=== PATIENT | female | born 1995 | race Caucasian/White ===

== ENCOUNTER 2020-03-31 09:27 | Inpatient (IN) | payer OTHER, BC ==
[2020-03-31] MEDS ORDERED: Nalbuphine 10 MG/1 ML Vial IVPUSH PRN (10:30)
[2020-03-31] MEDS ORDERED: Oxytocin/Lactated Ringers 10 UNIT/1,000 ML BAG IV SCH ×2 (10:30)
[2020-03-31] MEDS ORDERED: Sodium Chloride 0.9% 10 ML Syringe FLUSH PRN (10:30)
[2020-03-31] MEDS ORDERED: Lactated Ringers 1,000 ML IV SCH (10:30)
[2020-03-31] MEDS ORDERED: Lidocaine 1% 50 ML MDV INJECT PRN (10:30)
[2020-03-31] MEDS ORDERED: ePHEDrine 50 MG/ML SDV IVPUSH PRN (13:01)
[2020-03-31] MEDS ORDERED: diphenhydrAMINE 50 MG/ML SDV IVPUSH PRN (13:01)
[2020-03-31] MEDS ORDERED: Bupivacaine/fentaNYL/NS 100 ML Bag EPIDUR PRN (13:01)
[2020-03-31] MEDS ORDERED: fentaNYL 100 MCG/2 ML SDV EPIDUR PRN (13:01)
--- NOTE | 2020-03-31 13:24 | PCM.PREANE ---
Preanesthetic Assessment - Procedure Proposed Procedure: james - Anesthesia/Transfusion/Family Hx Anesthesia History: Prior Anesthesia Without Reaction Family History of Anesthesia Reaction: No Transfusion History: No Prior Transfusion(s) - Review of Systems General: No Symptoms Pulmonary: No Symptoms Cardiovascular: No Symptoms Gastrointestinal: No Symptoms Neurological: No Symptoms Other: Reports: None - Physical Assessment Vital Signs: Last Vital Signs Temp 98.4 F 03/31/20 10:22 Pulse 98 03/31/20 11:00 Resp 16 03/31/20 10:22 BP 124/81 03/31/20 11:00 Pulse Ox Height: 5 ft 6 in Weight: 74.389 kg ASA Class: 2 Mental Status: Alert & Oriented x3 Airway Class: Mallampati = 1 Dentition: Reports: Normal Dentition Thyro-Mental Finger Breadths: 3 Mouth Opening Finger Breadths: 3 ROM/Head Extension: Full Lungs: Clear to Auscultation, Normal Respiratory Effort Cardiovascular: Regular Rate, Regular Rhythm - Lab Values: Laboratory Last Values WBC 10.33 K/mm3 (3.98-10.04) H 03/31/20 10:56 RBC 3.99 M/mm3 (3.98-5.22) 03/31/20 10:56 Hgb 11.5 gm/dl (11.2-15.7) 03/31/20 10:56 Hct 36.0 % (34.1-44.9) 03/31/20 10:56 MCV 90.2 fl (79.4-94.8) 03/31/20 10:56 MCH 28.8 pg (25.6-32.2) 03/31/20 10:56 MCHC 31.9 g/dl (32.2-35.5) L 03/31/20 10:56 RDW Std Deviation 43.9 fL (36.4-46.3) 03/31/20 10:56 Plt Count 246 K/mm3 (182-369) 03/31/20 10:56 MPV 11.5 fl (9.4-12.3) 03/31/20 10:56 Neut % (Auto) 71.6 % (34.0-71.1) H 03/31/20 10:56 Lymph % (Auto) 19.7 % (19.3-51.7) 03/31/20 10:56 [place] % (Auto) 7.8 % (4.7-12.5) 03/31/20 10:56 Eos % (Auto) 0.3 (0.7-5.8) L 03/31/20 10:56 Baso % (Auto) 0.1 % (0.1-1.2) 03/31/20 10:56 Neut # (Auto) 7.39 K/mm3 (1.56-6.13) H 03/31/20 10:56 Lymph # (Auto) 2.04 K/mm3 (1.18-3.74) 03/31/20 10:56 [place] # (Auto) 0.81 K/mm3 (0.24-0.36) H 03/31/20 10:56 Eos # (Auto) 0.03 K/mm3 (0.04-0.36) L 03/31/20 10:56 Baso # (Auto) 0.01 K/mm3 (0.01-0.08) 03/31/20 10:56 Creatinine 0.7 mg/dL (0.55-1.02) 03/31/20 10:56 Est Cr Clr Drug Dosing 116.01 mL/min 03/31/20 10:56 Estimated GFR (MDRD) > 60 mL/min (>60) 03/31/20 10:56 AST 16 U/L (15-37) 03/31/20 10:56 ALT 15 U/L (14-59) 03/31/20 10:56 Ur Random Creatinine 29.2 mg/dL (30.0-125.0) L 03/31/20 11:45 U Random Total Protein < 6.0 mg/dL (0.0-11.8) 03/31/20 11:45 Protein/Creatinin Ratio TNP 03/31/20 11:45 Membrane Rupture Positive H 03/31/20 10:15 SARS-CoV-2 RNA (GIN) Negative (NEGATIVE) 03/31/20 10:50 - Allergies Allergies/Adverse Reactions: Allergies Allergy/AdvReac Type Severity Reaction Status Date / Time No Known Allergies Allergy Verified 03/31/20 09:43 - Blood Blood Available: No - Acknowledgements Anesthesia Type Planned: Epidural Pt an Appropriate Candidate for the Planned Anesthesia: Yes Alternatives and Risks of Anesthesia Discussed w Pt/Guardian: Yes Pt/Guardian Understands and Agrees with Anesthesia Plan: Yes PreAnesthesia Questionnaire Cardiovascular History: Reports: None Respiratory History: Reports: None Gastrointestinal History: Reports: GERD (last 6 weeks) : 1 (38 weeks) Para: 0 Oncologic (Cancer) History: Reports: None - History Comment History Comment: vit c and - SUBSTANCE USE Tobacco Use Status *Q: Never Tobacco User Tobacco Use Within Last Twelve Months: No Second Hand Smoke Exposure: No Days Per Week of Alcohol Use: 0 Recreational Drug Use History: No - CURRENT (IN HOUSE) MEDS Current Meds: Current Medications Diphenhydramine HCl (Benadryl) 25 mg IVPUSH Q6H PRN PRN Reason: pruritis Ephedrine Sulfate (Ephedrine Sulfate) 5 mg IVPUSH ASDIRECTED PRN PRN Reason: Hypotension Fentanyl (Sublimaze) 100 mcg EPIDUR Q3H PRN PRN Reason: Pain Fentanyl/Bupivacaine HCl (Fentanyl/Bupivacaine/Ns 2 Mcg-0.125% 100 Ml) 100 ml EPIDUR ASDIRECTED PRN PRN Reason: Pain Lactated Ringer's (Ringers, Lactated) 1,000 mls @ 100 mls/hr IV ASDIRECTED OBI Last Admin: 03/31/20 12:38 Dose: 100 mls/hr Documented by: Oxytocin/Lactated Ringer's (Pitocin In Lr 10 Units/1,000 Ml) 10 unit in 1,000 mls @ 12 mls/hr IV TITRATE OBI; Protocol Last Titration: 03/31/20 12:56 Dose: 4 munits/min, 24 mls/hr Documented by: Oxytocin/Lactated Ringer's (Pitocin In Lr 10 Units/1,000 Ml) 10 unit in 1,000 mls @ 500 mls/hr IV .CONTINUOUS OBI Lidocaine HCl (Xylocaine 1%) 50 ml INJECT ONETIME PRN PRN Reason: Breakthrough Pain Nalbuphine HCl (Nubain) 10 mg IVPUSH Q2H PRN PRN Reason: Pain Sodium Chloride (Saline Flush) 10 ml FLUSH ASDIRECTED PRN PRN Reason: Keep Vein Open
--- NOTE | 2020-03-31 16:04 | PCM.LDHP ---
L&D History of Present Illness - General Date of Service: 03/31/20 Admit Problem/Dx: Patient Status Order with Admit Dx/Problem 03/31/20 10:22 Patient Status [ADT] Routine 03/31/20 10:31 Patient Status [ADT] Routine Admission Diagnosis/Problem Admission Diagnosis/Problem Source of Information: Patient History Limitations: Reports: No Limitations - History of Present Illness Introduction:: Patient is a 24 y/o at 38 1/7 wks who presents with SROM. Occurred this AM about 0700. Small in amount overall. Minimal contractions - Related Data Allergies/Adverse Reactions: Allergies Allergy/AdvReac Type Severity Reaction Status Date / Time No Known Allergies Allergy Verified 03/31/20 09:43 Home Medications: Home Meds Pnv,Calcium 72/Iron/Folic Acid [ Vitamin with Low Iron] 1 each PO DAILY 03/31/20 [History] Past Medical History Gastrointestinal History: Reports: GERD (last 6 weeks) [employer] History: Reports: : 1 Para: 0 LMP (Approximate): - Past Surgical History HEENT Surgical History: Reports: Oral Surgery Other HEENT Surgeries/Procedures: teeth extraction Dermatological Surgical History: Reports: None - History Comment History Comment: vit c and Social & Family History - Family History Family Medical History: No Pertinent Family History - Tobacco Use Tobacco Use Status *Q: Never Tobacco User Second Hand Smoke Exposure: No - Caffeine Use Caffeine Use: Reports: None - Alcohol Use Alcohol Use History: No Days Per Week of Alcohol Use: 0 - Recreational Drug Use Recreational Drug Use: No H&P Review of Systems - Review of Systems: Review Of Systems: See Below General: Reports: No Symptoms Pulmonary: Reports: No Symptoms Cardiovascular: Reports: No Symptoms Gastrointestinal: Reports: No Symptoms Genitourinary: Reports: No Symptoms Musculoskeletal: Reports: No Symptoms Neurological: Reports: No Symptoms L&D Exam - Exam Exam: See Below - Vital Signs Vital Signs: Last Vital Signs Temp 36.9 C 03/31/20 10:22 Pulse 98 03/31/20 13:30 Resp 16 03/31/20 10:22 BP 131/86 03/31/20 13:30 Pulse Ox Weight: 74.389 kg - OB Specific Contraction Intensity: Irritability Movement: Active Heart Tones: Present Heart Tones per Min: 145 Heart Rate (FHR) Variability: Moderate (6-25 bmp) Presentation: Vertex - Armenta Score Armenta Score Cervix Position: Midposition Armenta Score Consistency: Soft Armenta Score Effacement: 51-70% Armenta Score Dilation: 1-2 cm Armenta Score Infant's Station: -2 Armenta Score Total: 7 - Exam General: Alert, Oriented, Cooperative Lungs: Clear to Auscultation, Normal Respiratory Effort Cardiovascular: Regular Rate, Regular Rhythm GI/Abdominal Exam: Normal Bowel Sounds, Soft Genitourinary: Normal external exam Extremities: Normal Inspection Skin: Warm, Dry, Intact - Patient Data Lab Results Last 24 hrs: Laboratory Results - last 24 hr 03/31/20 03/31/20 03/31/20 Range/Units 10:15 10:50 10:56 WBC 10.33 H (3.98-10.04) K/mm3 RBC 3.99 (3.98-5.22) M/mm3 Hgb 11.5 (11.2-15.7) gm/dl Hct 36.0 (34.1-44.9) % MCV 90.2 (79.4-94.8) fl MCH 28.8 (25.6-32.2) pg MCHC 31.9 L (32.2-35.5) g/dl RDW Std Deviation 43.9 (36.4-46.3) fL Plt Count 246 (182-369) K/mm3 MPV 11.5 (9.4-12.3) fl Neut % (Auto) 71.6 H (34.0-71.1) % Lymph % (Auto) 19.7 (19.3-51.7) % [place] % (Auto) 7.8 (4.7-12.5) % Eos % (Auto) 0.3 L (0.7-5.8) Baso % (Auto) 0.1 (0.1-1.2) % Neut # (Auto) 7.39 H (1.56-6.13) K/mm3 Lymph # (Auto) 2.04 (1.18-3.74) K/mm3 [place] # (Auto) 0.81 H (0.24-0.36) K/mm3 Eos # (Auto) 0.03 L (0.04-0.36) K/mm3 Baso # (Auto) 0.01 (0.01-0.08) K/mm3 Creatinine (0.55-1.02) mg/dL Est Cr Clr Drug Dosing mL/min Estimated GFR (MDRD) (>60) mL/min AST (15-37) U/L ALT (14-59) U/L Ur Random Creatinine (30.0-125.0) mg/dL U Random Total Protein (0.0-11.8) mg/dL Protein/Creatinin Ratio Membrane Rupture Positive H SARS-CoV-2 RNA (GIN) Negative (NEGATIVE) 03/31/20 03/31/20 Range/Units 10:56 11:45 WBC (3.98-10.04) K/mm3 RBC (3.98-5.22) M/mm3 Hgb (11.2-15.7) gm/dl Hct (34.1-44.9) % MCV (79.4-94.8) fl MCH (25.6-32.2) pg MCHC (32.2-35.5) g/dl RDW Std Deviation (36.4-46.3) fL Plt Count (182-369) K/mm3 MPV (9.4-12.3) fl Neut % (Auto) (34.0-71.1) % Lymph % (Auto) (19.3-51.7) % [place] % (Auto) (4.7-12.5) % Eos % (Auto) (0.7-5.8) Baso % (Auto) (0.1-1.2) % Neut # (Auto) (1.56-6.13) K/mm3 Lymph # (Auto) (1.18-3.74) K/mm3 [place] # (Auto) (0.24-0.36) K/mm3 Eos # (Auto) (0.04-0.36) K/mm3 Baso # (Auto) (0.01-0.08) K/mm3 Creatinine 0.7 (0.55-1.02) mg/dL Est Cr Clr Drug Dosing 116.01 mL/min Estimated GFR (MDRD) > 60 (>60) mL/min AST 16 (15-37) U/L ALT 15 (14-59) U/L Ur Random Creatinine 29.2 L (30.0-125.0) mg/dL U Random Total Protein < 6.0 (0.0-11.8) mg/dL Protein/Creatinin Ratio TNP Membrane Rupture SARS-CoV-2 RNA (GIN) (NEGATIVE) Result Diagrams: 03/31/20 10:56 03/31/20 10:56 - Problem List (1) SROM (spontaneous rupture of membranes) SNOMED Code(s): 084475883 ICD Code: KCT8347 - Status: Acute Current Visit: Yes (2) Gestational hypertension SNOMED Code(s): 982404045 ICD Code: O13.9 - GESTATIONAL HTN W/O SIGNIFICANT PROTEINURIA, UNSP TRIMESTER Status: Acute Current Visit: Yes Qualifiers: Trimester: third trimester Qualified Code(s): O13.3 - Gestational [-induced] hypertension without significant proteinuria, third trimester Problem List Initiated/Reviewed/Updated: Yes Orders Last 24hrs: Active Orders 24 hr Category Date Time Status Patient Status [ADT] Routine ADT 03/31/20 10:31 Active Activity as Tolerated [RC] PFP Care 03/31/20 10:30 Active Communication Order [RC] ASDIRECTED Care 03/31/20 10:30 Active Heart Tones [RC] ASDIRECTED Care 03/31/20 10:31 Active Non Stress Test [RC] PER UNIT ROUTINE Care 03/31/20 10:22 Active Notify Provider [RC] ASDIRECTED Care 03/31/20 13:01 Active Notify Provider [RC] PFP Care 03/31/20 10:30 Active Notify Provider [RC] PRN Care 03/31/20 10:30 Active Peripheral IV Care [RC] . DIRECTED Care 03/31/20 10:31 Active Urinary Catheter Assessment [RC] ASDIRECTED Care 03/31/20 10:30 Active Vital Signs [RC] PER UNIT ROUTINE Care 03/31/20 10:22 Active Regular Diet [DIET] Diet 03/31/20 Lunch Active RAPID PLASMA REAGIN,RPR [CHEM] Routine Lab 03/31/20 10:56 Received Bupivacaine/fentaNYL/NS [fentaNYL/Bupivacaine/NS 2 MCG- Med 03/31/20 13:01 Active 0.125% 100 ML] 100 ml EPIDUR ASDIRECTED PRN Lactated Ringers [Ringers, Lactated] 1,000 ml Med 03/31/20 10:30 Active IV ASDIRECTED Lidocaine 1% [Xylocaine 1%] Med 03/31/20 10:30 Active 50 ml INJECT ONETIME PRN Nalbuphine [Nubain] Med 03/31/20 10:30 Active 10 mg IVPUSH Q2H PRN Oxytocin/Lactated Ringers [Pitocin in LR 10 Units/1,000 Med 03/31/20 10:30 Active ML] 10 unit in 1,000 ml IV .CONTINUOUS Oxytocin/Lactated Ringers [Pitocin in LR 10 Units/1,000 Med 03/31/20 10:30 Active ML] 10 unit in 1,000 ml IV TITRATE Sodium Chloride 0.9% [Saline Flush] Med 03/31/20 10:30 Active 10 ml FLUSH ASDIRECTED PRN diphenhydrAMINE [Benadryl] Med 03/31/20 13:01 Active 25 mg IVPUSH Q6H PRN ePHEDrine [ePHEDrine sulfate] Med 03/31/20 13:01 Active 5 mg IVPUSH ASDIRECTED PRN fentaNYL [Sublimaze] Med 03/31/20 13:01 Active 100 mcg EPIDUR Q3H PRN Electronic Heart Tones Ext w TOCO [WOMSER] Oth 03/31/20 10:30 Ordered Routine Electronic Heart Tones Internal [WOMSER] Per Unit Oth 03/31/20 10:30 Ordered Routine Peripheral IV Insertion Adult [OM.PC] Routine Oth 03/31/20 10:30 Ordered Resuscitation Status Routine Resus Stat 03/31/20 10:22 Ordered Medication Orders Diphenhydramine HCl (Benadryl) 25 mg IVPUSH Q6H PRN PRN Reason: pruritis Ephedrine Sulfate (Ephedrine Sulfate) 5 mg IVPUSH ASDIRECTED PRN PRN Reason: Hypotension Fentanyl (Sublimaze) 100 mcg EPIDUR Q3H PRN PRN Reason: Pain Fentanyl/Bupivacaine HCl (Fentanyl/Bupivacaine/Ns 2 Mcg-0.125% 100 Ml) 100 ml EPIDUR ASDIRECTED PRN PRN Reason: Pain Lactated Ringer's (Ringers, Lactated) 1,000 mls @ 100 mls/hr IV ASDIRECTED OBI Last Admin: 03/31/20 12:38 Dose: 100 mls/hr Documented by: MAIDA Oxytocin/Lactated Ringer's (Pitocin In Lr 10 Units/1,000 Ml) 10 unit in 1,000 mls @ 12 mls/hr IV TITRATE OBI; Protocol Last Titration: 03/31/20 15:58 Dose: 8 munits/min, 48 mls/hr Documented by: Titration: 03/31/20 13:35 Dose: 6 munits/min, 36 mls/hr Documented by: Titration: 03/31/20 12:56 Dose: 4 munits/min, 24 mls/hr Documented by: Admin: 03/31/20 12:38 Dose: 2 munits/min, 12 mls/hr Documented by: MAIDA Oxytocin/Lactated Ringer's (Pitocin In Lr 10 Units/1,000 Ml) 10 unit in 1,000 mls @ 500 mls/hr IV .CONTINUOUS OBI Lidocaine HCl (Xylocaine 1%) 50 ml INJECT ONETIME PRN PRN Reason: Breakthrough Pain Nalbuphine HCl (Nubain) 10 mg IVPUSH Q2H PRN PRN Reason: Pain Sodium Chloride (Saline Flush) 10 ml FLUSH ASDIRECTED PRN PRN Reason: Keep Vein Open Assessment/Plan Comment:: * Labs done * AST, ALT, Creatinine for elevated BP done and WNL - gestational HTN * Pitocin for augmentation. Just ruptured a forebag * GBS negative * Pain management per patient preference
--- NOTE | 2020-03-31 21:28 | PCM.DEL ---
L & D Note - General Info Date of Service: 03/31/20 - Delivery Note Labor: Augmented by Oxytocin Delivery Outcome: Livebirth Delivery Method: Spontaneous Vaginal Delivery-Single Delivery Mode: Spontaneous Presentation: Left Occiput Anterior (DOLLY) Nuchal Cord: None Anesthesia Type: Epidural Amniotic Fluid Description: Clear Episiotomy Type: None Laceration: 2nd Degree Suture type: Vicryl (And also 3-0 Monocryl) Suture size: 2-0 Placenta: Intact, Spontaneous Cord: 3 Vessels Estimated Blood Loss: 100 : Bulb Syringe, Stimulated, Warmed, [place] Used, Warmer Used Delivery Comments (Free Text/Narrative):: Patient found to be complete and began pushing. With maternal pushing effort head delivered from an DOLLY presentation. No nuchal cord present. With gentle downward traction the shoulders and body delivered. placed on maternal abdomen. Cord clamped and cut. Cord blood obtained. Placenta allowed time to separate and expelled intact. Inspection of perineum showed a 2nd degree laceration with disruption of left labia. Labia laceration repaired first with running 3-0 Monocryl. Remainder of perineal laceration repaired with a 2-0 Vicryl in the typical fashion - General Info Date of Service: 03/31/20 - Patient Data Vitals - Most Recent: Last Vital Signs Temp 36.9 C 03/31/20 10:22 Pulse 98 03/31/20 13:30 Resp 16 03/31/20 10:22 BP 131/86 03/31/20 13:30 Pulse Ox Weight - Most Recent: 74.389 kg I&O - Last 24 Hours: Intake & Output 03/31/20 03/31/20 03/31/20 06:59 14:59 22:59 Intake Total 180 Balance 180 - Problem List & Annotations (1) SROM (spontaneous rupture of membranes) SNOMED Code(s): 078358865 Code(s): EEC8758 - Status: Acute Current Visit: Yes (2) Gestational hypertension SNOMED Code(s): 258130607 Code(s): O13.9 - GESTATIONAL HTN W/O SIGNIFICANT PROTEINURIA, UNSP TRIMESTER Status: Acute Current Visit: Yes Qualifiers: Trimester: third trimester Qualified Code(s): O13.3 - Gestational [-induced] hypertension without significant proteinuria, third trimester (3) Vaginal delivery SNOMED Code(s): 403164821 Code(s): O80 - ENCOUNTER FOR FULL-TERM UNCOMPLICATED DELIVERY Status: Acute Current Visit: Yes - Problem List Review Problem List Initiated/Reviewed/Updated: Yes - My Orders Last 24 Hours: My Active Orders 03/31/20 10:22 Non Stress Test [RC] PER UNIT ROUTINE Vital Signs [RC] PER UNIT ROUTINE Resuscitation Status Routine 03/31/20 10:30 Activity as Tolerated [RC] PFP Communication Order [RC] ASDIRECTED Notify Provider [RC] PFP Notify Provider [RC] PRN Urinary Catheter Assessment [RC] ASDIRECTED Lactated Ringers [Ringers, Lactated] 1,000 ml IV ASDIRECTED Lidocaine 1% [Xylocaine 1%] 50 ml INJECT ONETIME PRN Nalbuphine [Nubain] 10 mg IVPUSH Q2H PRN Oxytocin/Lactated Ringers [Pitocin in LR 10 Units/1,000 ML] 10 unit in 1,000 ml IV .CONTINUOUS Oxytocin/Lactated Ringers [Pitocin in LR 10 Units/1,000 ML] 10 unit in 1,000 ml IV TITRATE Sodium Chloride 0.9% [Saline Flush] 10 ml FLUSH ASDIRECTED PRN Electronic Heart Tones Ext w TOCO [WOMSER] Routine Electronic Heart Tones Internal [WOMSER] Per Unit Routine Peripheral IV Insertion Adult [OM.PC] Routine 03/31/20 10:31 Patient Status [ADT] Routine Heart Tones [RC] ASDIRECTED Peripheral IV Care [RC] . DIRECTED 03/31/20 Lunch Regular Diet [DIET] - Assessment Assessment:: PPD#0 - Plan Plan:: * Routine cares * Monitor BP's closely * Breast feeding * Discharge home in 2 days
[2020-03-31] MEDS ORDERED: Acetaminophen 325 MG Tab PO PRN (22:01)
[2020-03-31] MEDS ORDERED: Benzocaine/Menthol 20%-0.5% Spray 56 GM Canister TOP PRN (22:01)
[2020-03-31] MEDS ORDERED: Witch Hazel Medicated Pads 40/Jar TOP PRN (22:01)
[2020-03-31] MEDS ORDERED: Docusate Sodium 100 MG Cap PO PRN (22:01)
[2020-04-01] MEDS ORDERED: Bupivacaine 0.25% 10 ML SDV ONE
[2020-04-01] MEDS: Ibuprofen 600 MG Tab PO PRN ×2 (05:07→16:35)
--- NOTE | 2020-04-01 07:31 | PCM48HPAN ---
Post Anesthesia Note - EVALUATION WITHIN 48HRS OF ANESTHETIC Vital Signs in Normal Range: Yes Patient Participated in Evaluation: Yes Respiratory Function Stable: Yes Airway Patent: Yes Cardiovascular Function Stable: Yes Hydration Status Stable: Yes Pain Control Satisfactory: Yes Nausea and Vomiting Control Satisfactory: Yes Mental Status Recovered: Yes Vital Signs: Last Vital Signs Temp 37.0 C 04/01/20 05:04 Pulse 96 04/01/20 05:04 Resp 15 04/01/20 05:04 BP 138/85 04/01/20 05:04 Pulse Ox 95 04/01/20 05:04
--- NOTE | 2020-04-01 08:06 | PCM.PNPP ---
- General Info Date of Service: 04/01/20 Functional Status: Reports: Pain Controlled, Tolerating Diet, Ambulating, Urinating - Review of Systems General: Reports: No Symptoms Pulmonary: Reports: No Symptoms Cardiovascular: Reports: No Symptoms Gastrointestinal: Reports: No Symptoms Genitourinary: Reports: No Symptoms Musculoskeletal: Reports: No Symptoms Neurological: Reports: No Symptoms - Patient Data Vital Signs - Most Recent: Last Vital Signs Temp 37.0 C 04/01/20 05:04 Pulse 96 04/01/20 05:04 Resp 15 04/01/20 05:04 BP 138/85 04/01/20 05:04 Pulse Ox 95 04/01/20 05:04 Weight - Most Recent: 74.389 kg I&O - Last 24 Hours: Intake & Output 03/31/20 04/01/20 04/01/20 22:59 06:59 14:59 Intake Total 180 3000 Balance 180 3000 Lab Results - Last 24 Hours: Laboratory Results - last 24 hr 03/31/20 03/31/20 03/31/20 Range/Units 10:15 10:50 10:56 WBC 10.33 H (3.98-10.04) K/mm3 RBC 3.99 (3.98-5.22) M/mm3 Hgb 11.5 (11.2-15.7) gm/dl Hct 36.0 (34.1-44.9) % MCV 90.2 (79.4-94.8) fl MCH 28.8 (25.6-32.2) pg MCHC 31.9 L (32.2-35.5) g/dl RDW Std Deviation 43.9 (36.4-46.3) fL Plt Count 246 (182-369) K/mm3 MPV 11.5 (9.4-12.3) fl Neut % (Auto) 71.6 H (34.0-71.1) % Lymph % (Auto) 19.7 (19.3-51.7) % [place] % (Auto) 7.8 (4.7-12.5) % Eos % (Auto) 0.3 L (0.7-5.8) Baso % (Auto) 0.1 (0.1-1.2) % Neut # (Auto) 7.39 H (1.56-6.13) K/mm3 Lymph # (Auto) 2.04 (1.18-3.74) K/mm3 [place] # (Auto) 0.81 H (0.24-0.36) K/mm3 Eos # (Auto) 0.03 L (0.04-0.36) K/mm3 Baso # (Auto) 0.01 (0.01-0.08) K/mm3 Creatinine (0.55-1.02) mg/dL Est Cr Clr Drug Dosing mL/min Estimated GFR (MDRD) (>60) mL/min AST (15-37) U/L ALT (14-59) U/L Ur Random Creatinine (30.0-125.0) mg/dL U Random Total Protein (0.0-11.8) mg/dL Protein/Creatinin Ratio Membrane Rupture Positive H RPR (NONREACTIVE) SARS-CoV-2 RNA (GIN) Negative (NEGATIVE) 03/31/20 03/31/20 03/31/20 Range/Units 10:56 10:56 11:45 WBC (3.98-10.04) K/mm3 RBC (3.98-5.22) M/mm3 Hgb (11.2-15.7) gm/dl Hct (34.1-44.9) % MCV (79.4-94.8) fl MCH (25.6-32.2) pg MCHC (32.2-35.5) g/dl RDW Std Deviation (36.4-46.3) fL Plt Count (182-369) K/mm3 MPV (9.4-12.3) fl Neut % (Auto) (34.0-71.1) % Lymph % (Auto) (19.3-51.7) % [place] % (Auto) (4.7-12.5) % Eos % (Auto) (0.7-5.8) Baso % (Auto) (0.1-1.2) % Neut # (Auto) (1.56-6.13) K/mm3 Lymph # (Auto) (1.18-3.74) K/mm3 [place] # (Auto) (0.24-0.36) K/mm3 Eos # (Auto) (0.04-0.36) K/mm3 Baso # (Auto) (0.01-0.08) K/mm3 Creatinine 0.7 (0.55-1.02) mg/dL Est Cr Clr Drug Dosing 116.01 mL/min Estimated GFR (MDRD) > 60 (>60) mL/min AST 16 (15-37) U/L ALT 15 (14-59) U/L Ur Random Creatinine 29.2 L (30.0-125.0) mg/dL U Random Total Protein < 6.0 (0.0-11.8) mg/dL Protein/Creatinin Ratio TNP Membrane Rupture RPR Non-reactive (NONREACTIVE) SARS-CoV-2 RNA (GIN) (NEGATIVE) Med Orders - Current: Current Medications Acetaminophen (Tylenol) 650 mg PO Q4H PRN PRN Reason: mild pain or fever Last Admin: 03/31/20 22:27 Dose: 650 mg Documented by: Benzocaine/Menthol (Dermoplast Pain Relief [place]) 0 gm TOP ASDIRECTED PRN PRN Reason: Perineal Comfort Measure Last Admin: 03/31/20 22:27 Dose: 1 can Documented by: Docusate Sodium (Colace) 100 mg PO BID PRN PRN Reason: Constipation Ibuprofen (Motrin) 600 mg PO Q6H PRN PRN Reason: Mild pain or fever Last Admin: 04/01/20 05:07 Dose: 600 mg Documented by: Tamiko Hong (Rodney) 1 pad TOP ASDIRECTED PRN PRN Reason: Perineal Comfort Measure Last Admin: 03/31/20 22:26 Dose: 1 jar Documented by: Discontinued Medications Diphenhydramine HCl (Benadryl) 25 mg IVPUSH Q6H PRN PRN Reason: pruritis Ephedrine Sulfate (Ephedrine Sulfate) 5 mg IVPUSH ASDIRECTED PRN PRN Reason: Hypotension Fentanyl (Sublimaze) 100 mcg EPIDUR Q3H PRN PRN Reason: Pain Last Admin: 03/31/20 18:40 Dose: 100 mcg Documented by: Fentanyl/Bupivacaine HCl (Fentanyl/Bupivacaine/Ns 2 Mcg-0.125% 100 Ml) 100 ml EPIDUR ASDIRECTED PRN PRN Reason: Pain Last Admin: 03/31/20 18:39 Dose: 100 ml Documented by: Lactated Ringer's (Ringers, Lactated) 1,000 mls @ 100 mls/hr IV ASDIRECTED OBI Last Infusion: 03/31/20 18:41 Dose: 999 mls/hr Documented by: Oxytocin/Lactated Ringer's (Pitocin In Lr 10 Units/1,000 Ml) 10 unit in 1,000 mls @ 12 mls/hr IV TITRATE OBI; Protocol Last Titration: 03/31/20 18:40 Dose: 8 munits/min, 48 mls/hr Documented by: Oxytocin/Lactated Ringer's (Pitocin In Lr 10 Units/1,000 Ml) 10 unit in 1,000 mls @ 500 mls/hr IV .CONTINUOUS OBI Lidocaine HCl (Xylocaine 1%) 50 ml INJECT ONETIME PRN PRN Reason: Breakthrough Pain Nalbuphine HCl (Nubain) 10 mg IVPUSH Q2H PRN PRN Reason: Pain Sodium Chloride (Saline Flush) 10 ml FLUSH ASDIRECTED PRN PRN Reason: Keep Vein Open - Interaction Disposition, : in Room with Family Infant Interaction: Holding Infant Feeding: Attempted ; Nursed Fair/Poor Support Person: - Recovery Exam Fundal Tone: Firm Fundal Level: At Umbilicus Fundal Placement: Midline Lochia Amount: Scant, Small Lochia Color: Rubra/Red Episiotomy/Laceration: Approximated Bladder Status: Voiding Urinary Elimination: Voided - Exam General: Alert, Oriented, Cooperative GI/Abdominal Exam: Soft, Non-Tender Extremities: Normal Inspection Skin: Warm, Dry, Intact - Problem List & Annotations (1) SROM (spontaneous rupture of membranes) SNOMED Code(s): 043953620 Code(s): OTL3397 - Status: Acute Current Visit: Yes (2) Gestational hypertension SNOMED Code(s): 844644018 Code(s): O13.9 - GESTATIONAL HTN W/O SIGNIFICANT PROTEINURIA, UNSP TRIMESTER Status: Acute Current Visit: Yes Qualifiers: Trimester: third trimester Qualified Code(s): O13.3 - Gestational [-induced] hypertension without significant proteinuria, third trimester (3) Vaginal delivery SNOMED Code(s): 284080273 Code(s): O80 - ENCOUNTER FOR FULL-TERM UNCOMPLICATED DELIVERY Status: Acute Current Visit: Yes - Problem List Review Problem List Initiated/Reviewed/Updated: Yes - My Orders Last 24 Hours: My Active Orders 03/31/20 10:22 Resuscitation Status Routine 03/31/20 22:01 Acetaminophen [TylenoL] 650 mg PO Q4H PRN Benzocaine/Menthol [Dermoplast Pain Relief [place]] See Dose Instructions TOP ASDIRECTED PRN Docusate Sodium [Colace] 100 mg PO BID PRN Ibuprofen [Motrin] 600 mg PO Q6H PRN witch Ann [Tucks] 1 pad TOP ASDIRECTED PRN Heat Therapy [OM.PC] PRN 03/31/20 22:01 Activity as Tolerated [RC] PER UNIT ROUTINE Vital Signs [RC] ,15,, Assess Lochia [WOMSER] Per Unit Routine Assess Uterine Involution [WOMSER] Per Unit Routine Breast Pump [WOMSER] Per Unit Routine Ice Therapy [OM.PC] Per Unit Routine Perineal Care [OM.PC] Per Unit Routine Peripheral IV Discontinue [OM.PC] Routine Sitz Bath [OM.PC] Per Unit Routine 04/01/20 22:01 Heat Therapy [OM.PC] PRN - Assessment Assessment:: PPD#1 - Plan Plan:: * Routine cares * BP's normal to mild range. Continue to monitor * Breast feeding * Discharge home tomorrow
--- NOTE | 2020-04-02 07:02 | PCM.DCSUM1 ---
Discharge Summary - Discharge Data Discharge Date: 04/02/20 Discharge Disposition: Home, Self-Care 01 Condition: Good - Referral to Home Health Primary Care Physician: PCP None - Discharge Diagnosis/Problem(s) (1) SROM (spontaneous rupture of membranes) SNOMED Code(s): 672986003 ICD Code: [id number] - Status: Acute (2) Gestational hypertension SNOMED Code(s): 664502317 ICD Code: O13.9 - GESTATIONAL HTN W/O SIGNIFICANT PROTEINURIA, UNSP TRIMESTER Status: Acute Qualifiers: Trimester: third trimester Qualified Code(s): O13.3 - Gestational [-induced] hypertension without significant proteinuria, third trimester (3) Vaginal delivery SNOMED Code(s): 704569349 ICD Code: O80 - ENCOUNTER FOR FULL-TERM UNCOMPLICATED DELIVERY Status: Acute - Patient Summary/Data Complications: None Consults: None Recommended Follow-up Testing/Procedures: Follow up in 1 week for BP check and 3 weeks for check Hospital Course: Patient is a 24 y/o who presented with SROM and findings of mild range BP's. Labs done and WNL. Augmented with pitocin. Progressed well to complete dilation and underwent an uncomplicated . See delivery note. did well and was discharged home on PPD#2 - Patient Instructions Diet: Regular Diet as Tolerated Activity: As Tolerated Activity, Other: Pelvic rest for 6 weeks Driving: May Drive Today Showering/Bathing: May Shower Showering/Bathing, Other: May Bathe Notify Provider of: Fever, Increased Pain, Swelling and Redness, Drainage, Nausea and/or Vomiting - Discharge Plan *PRESCRIPTION DRUG MONITORING PROGRAM REVIEWED*: No *COPY OF PRESCRIPTION DRUG MONITORING REPORT IN PATIENT RYAN: No Home Medications: Home Meds Pnv,Calcium 72/Iron/Folic Acid [ Vitamin Plus Low Iron] 1 each PO DAILY 03/31/20 [History] Docusate Sodium [Colace] 100 mg PO BID PRN cap 04/02/20 [Rx] Ibuprofen [Motrin] 600 mg PO Q6H PRN tablet 04/02/20 [Rx] Patient Handouts: Care After Vaginal Delivery Referrals: Delma Romano MD [Physician] - (1 week for BP check 3 weeks for check ) - Discharge Summary/Plan Comment DC Time >30 min.: No - Patient Data Vitals - Most Recent: Last Vital Signs Temp 36.7 C 04/02/20 05:10 Pulse 90 04/02/20 05:10 Resp 16 04/02/20 05:10 BP 130/68 04/02/20 05:10 Pulse Ox 99 04/02/20 05:10 Weight - Most Recent: 74.389 kg I&O - Last 24 hours: Intake & Output 04/01/20 04/02/20 04/02/20 22:59 06:59 14:59 Intake Total 100 Balance 100 Med Orders - Current: Current Medications Acetaminophen (Tylenol) 650 mg PO Q4H PRN PRN Reason: mild pain or fever Last Admin: 03/31/20 22:27 Dose: 650 mg Documented by: Benzocaine/Menthol (Dermoplast Pain Relief [place]) 0 gm TOP ASDIRECTED PRN PRN Reason: Perineal Comfort Measure Last Admin: 03/31/20 22:27 Dose: 1 can Documented by: Docusate Sodium (Colace) 100 mg PO BID PRN PRN Reason: Constipation Last Admin: 04/01/20 23:50 Dose: 100 mg Documented by: Ibuprofen (Motrin) 600 mg PO Q6H PRN PRN Reason: Mild pain or fever Last Admin: 04/01/20 16:35 Dose: 600 mg Documented by: Tamiko Hong ([facility]ocent[facility]) 1 pad TOP ASDIRECTED PRN PRN Reason: Perineal Comfort Measure Last Admin: 03/31/20 22:26 Dose: 1 jar Documented by: Discontinued Medications Bupivacaine HCl (Sensorcaine-Mpf 0.25%) 20 ml .ROUTE .STK-MED ONE Stop: 04/01/20 00:01 Diphenhydramine HCl (Benadryl) 25 mg IVPUSH Q6H PRN PRN Reason: pruritis Ephedrine Sulfate (Ephedrine Sulfate) 5 mg IVPUSH ASDIRECTED PRN PRN Reason: Hypotension Fentanyl (Sublimaze) 100 mcg EPIDUR Q3H PRN PRN Reason: Pain Last Admin: 03/31/20 18:40 Dose: 100 mcg Documented by: Fentanyl/Bupivacaine HCl (Fentanyl/Bupivacaine/Ns 2 Mcg-0.125% 100 Ml) 100 ml EPIDUR ASDIRECTED PRN PRN Reason: Pain Last Admin: 03/31/20 18:39 Dose: 100 ml Documented by: Lactated Ringer's (Ringers, Lactated) 1,000 mls @ 100 mls/hr IV ASDIRECTED OBI Last Infusion: 03/31/20 18:41 Dose: 999 mls/hr Documented by: Oxytocin/Lactated Ringer's (Pitocin In Lr 10 Units/1,000 Ml) 10 unit in 1,000 mls @ 12 mls/hr IV TITRATE OBI; Protocol Last Titration: 03/31/20 18:40 Dose: 8 munits/min, 48 mls/hr Documented by: Oxytocin/Lactated Ringer's (Pitocin In Lr 10 Units/1,000 Ml) 10 unit in 1,000 mls @ 500 mls/hr IV .CONTINUOUS OBI Lidocaine HCl (Xylocaine 1%) 50 ml INJECT ONETIME PRN PRN Reason: Breakthrough Pain Nalbuphine HCl (Nubain) 10 mg IVPUSH Q2H PRN PRN Reason: Pain Sodium Chloride (Saline Flush) 10 ml FLUSH ASDIRECTED PRN PRN Reason: Keep Vein Open
--- NOTE | 2020-04-02 07:02 | PCM.PNPP ---
- General Info Date of Service: 04/02/20 Functional Status: Reports: Pain Controlled, Tolerating Diet, Ambulating, Urinating - Review of Systems General: Reports: No Symptoms Pulmonary: Reports: No Symptoms Cardiovascular: Reports: No Symptoms Gastrointestinal: Reports: No Symptoms Genitourinary: Reports: No Symptoms Musculoskeletal: Reports: No Symptoms Neurological: Reports: No Symptoms - Patient Data Vital Signs - Most Recent: Last Vital Signs Temp 36.7 C 04/02/20 05:10 Pulse 90 04/02/20 05:10 Resp 16 04/02/20 05:10 BP 130/68 04/02/20 05:10 Pulse Ox 99 04/02/20 05:10 Weight - Most Recent: 74.389 kg I&O - Last 24 Hours: Intake & Output 04/01/20 04/02/20 04/02/20 22:59 06:59 14:59 Intake Total 100 Balance 100 Med Orders - Current: Current Medications Acetaminophen (Tylenol) 650 mg PO Q4H PRN PRN Reason: mild pain or fever Last Admin: 03/31/20 22:27 Dose: 650 mg Documented by: Benzocaine/Menthol (Dermoplast Pain Relief [place]) 0 gm TOP ASDIRECTED PRN PRN Reason: Perineal Comfort Measure Last Admin: 03/31/20 22:27 Dose: 1 can Documented by: Docusate Sodium (Colace) 100 mg PO BID PRN PRN Reason: Constipation Last Admin: 04/01/20 23:50 Dose: 100 mg Documented by: Ibuprofen (Motrin) 600 mg PO Q6H PRN PRN Reason: Mild pain or fever Last Admin: 04/01/20 16:35 Dose: 600 mg Documented by: Tamiko Hong ([employer]ucks) 1 pad TOP ASDIRECTED PRN PRN Reason: Perineal Comfort Measure Last Admin: 03/31/20 22:26 Dose: 1 jar Documented by: Discontinued Medications Bupivacaine HCl (Sensorcaine-Mpf 0.25%) 20 ml .ROUTE .STK-MED ONE Stop: 04/01/20 00:01 Diphenhydramine HCl (Benadryl) 25 mg IVPUSH Q6H PRN PRN Reason: pruritis Ephedrine Sulfate (Ephedrine Sulfate) 5 mg IVPUSH ASDIRECTED PRN PRN Reason: Hypotension Fentanyl (Sublimaze) 100 mcg EPIDUR Q3H PRN PRN Reason: Pain Last Admin: 03/31/20 18:40 Dose: 100 mcg Documented by: Fentanyl/Bupivacaine HCl (Fentanyl/Bupivacaine/Ns 2 Mcg-0.125% 100 Ml) 100 ml EPIDUR ASDIRECTED PRN PRN Reason: Pain Last Admin: 03/31/20 18:39 Dose: 100 ml Documented by: Lactated Ringer's (Ringers, Lactated) 1,000 mls @ 100 mls/hr IV ASDIRECTED OBI Last Infusion: 03/31/20 18:41 Dose: 999 mls/hr Documented by: Oxytocin/Lactated Ringer's (Pitocin In Lr 10 Units/1,000 Ml) 10 unit in 1,000 mls @ 12 mls/hr IV TITRATE OBI; Protocol Last Titration: 03/31/20 18:40 Dose: 8 munits/min, 48 mls/hr Documented by: Oxytocin/Lactated Ringer's (Pitocin In Lr 10 Units/1,000 Ml) 10 unit in 1,000 mls @ 500 mls/hr IV .CONTINUOUS OBI Lidocaine HCl (Xylocaine 1%) 50 ml INJECT ONETIME PRN PRN Reason: Breakthrough Pain Nalbuphine HCl (Nubain) 10 mg IVPUSH Q2H PRN PRN Reason: Pain Sodium Chloride (Saline Flush) 10 ml FLUSH ASDIRECTED PRN PRN Reason: Keep Vein Open - Infant Interaction Disposition, : [place] in Room with Family Interaction: Holding Infant Infant Feeding: Attempted ; Nursed Fair/Poor Support Person: - Recovery Exam Fundal Tone: Firm Fundal Level: At Umbilicus Fundal Placement: Midline Lochia Amount: Small Lochia Color: Rubra/Red Episiotomy/Laceration: Approximated Bladder Status: Voiding Urinary Elimination: Voided - Exam General: Alert, Oriented, Cooperative GI/Abdominal Exam: Soft, Non-Tender Extremities: Normal Inspection Skin: Warm, Dry, Intact - Problem List & Annotations (1) SROM (spontaneous rupture of membranes) SNOMED Code(s): 800717277 Code(s): RMS3301 - Status: Acute (2) Gestational hypertension SNOMED Code(s): 535150718 Code(s): O13.9 - GESTATIONAL HTN W/O SIGNIFICANT PROTEINURIA, UNSP TRIMESTER Status: Acute Qualifiers: Trimester: third trimester Qualified Code(s): O13.3 - Gestational [-induced] hypertension without significant proteinuria, third trimester (3) Vaginal delivery SNOMED Code(s): 636311500 Code(s): O80 - ENCOUNTER FOR FULL-TERM UNCOMPLICATED DELIVERY Status: Acute - Problem List Review Problem List Initiated/Reviewed/Updated: Yes - My Orders Last 24 Hours: My Active Orders 04/01/20 22:01 Heat Therapy [OM.PC] PRN 04/02/20 07:01 Ready for Discharge [RC] PER UNIT ROUTINE - Assessment Assessment:: PPD#2 - Plan Plan:: * Routine cares * BP's normal to mild range. Will need BP check in 1 weeks * Breast feeding * Discharge home today
[2020-04-02] MEDS: Ibuprofen 600 MG Tab PO PRN (08:05)
== END 2020-04-02 12:31 | disposition home or self-care (01) | DRG 807 ==
LOC: JD.OBCHECK 09:27 → JD.OB 09:38 → JD.OBCHECK 10:31 → JD.OB 10:50 → OBSVTOIN 21:09 → JD.OB 21:10
PROVIDERS: ADMIT Obstetrics & Gynecology; ATTEND Obstetrics & Gynecology
PROC: 10E0XZZ Delivery of Products of Conception, External Approach (ICD-10-PCS; principal; 2020-03-31)
PROC: 0KQM0ZZ Repair Perineum Muscle, Open Approach (ICD-10-PCS; 2020-03-31)
PROC: 0UQMXZZ Repair Vulva, External Approach (ICD-10-PCS; 2020-03-31)
PROC: 3E0R3BZ Introduction of Anesthetic Agent into Spinal Canal, Percutaneous Approach (ICD-10-PCS; 2020-03-31)
PROC: 00HU33Z Insertion of Infusion Device into Spinal Canal, Percutaneous Approach (ICD-10-PCS; 2020-03-31)
DX: O13.4 Gestational [pregnancy-induced] hypertension without significant proteinuria, complicating childbirth (principal); Z37.0 Single live birth; Z3A.38 38 weeks gestation of pregnancy; O70.1 Second degree perineal laceration during delivery; Z20.822 Contact with and (suspected) exposure to COVID-19
CPT/HCPCS: 01967; 36415; 51701; 59025; 59409; 82565; 82570; 84112; 84156; 84450; 84460; 85025; 86592; A9270-GY; J2590; J3010; J3490; J7120; U0002